=== PATIENT | female | born 1955 | race African-American/Black ===

== ENCOUNTER → 2016-11-20 | Outpatient (CLI) | payer OTHER ==
[2016-07-30 13:37] VITALS: BP 215/83
[~2016-11-20] MED LIST: SULF1TAB24 PO
--- NOTE | 2016-11-20 16:09 | RAD ---
Dictation cut Pain associated with trauma 3 months ago. Recent injury. AP oblique and lateral views of the left foot were obtained. There is moderately extensive vascular calcification. Has planus is noted. There are some degenerative changes involving the midfoot. There is slight soft tissue swelling. An acute bony finding is not apparent. IMPRESSION: No acute bony finding
== END | disposition home or self-care (01) ==
LOC: RAD 14:49
PROVIDERS: ATTEND Internal Medicine
DX: S99.922A Unspecified injury of left foot, initial encounter (principal)
CPT/HCPCS: 73630

== ENCOUNTER 2016-11-24 16:47 | Emergency (ER) | payer OTHER ==
--- NOTE | 2016-11-24 19:09 | RAD ---
PROCEDURE: Left lower extremity venous Doppler ultrasound. HISTORY Left foot pain and swelling, unable to bear weight. Left foot cold. Patient is diabetic. COMPARISON None. TECHNIQUE Real-time grayscale, color flow, and Doppler spectral waveform analysis of the deep veins of the lower extremity/ies performed. FINDINGS All visualized vein segments demonstrate normal compressibility and augmentation and color flow. Color flow seen within calf veins. Waveform in the popliteal artery is monophasic. Peak systolic velocity ranges from 30/4 to 59 cm/sec. Color Doppler demonstrates minimal flow in the peroneal artery proximally. No flow can be demonstrated in the posterior tibial or dorsalis pedis arteries. IMPRESSION 1. No evidence of left lower extremity deep vein thrombosis. 2. Flow in the dorsalis pedis and posterior tibial artery is unable to be demonstrated. Electronically signed by: Francisco Varela MD (Nov 24, 2016 19:08:31)
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
[2016-11-24 20:12] LABS: BASO # 0.1 x10^3/uL (0.0-0.2); BASO % 1 % (0-3); EOS % 0 % (0-3); HEMATOCRIT 39.9 % (36.0-47.0); HEMOGLOBIN 13.2 g/dL (12.0-15.5); LYMPH # 1.5 x10^3/uL (1.0-4.8); LYMPH % 10 % (24-48); MEAN CORPUSCULAR HEMOGLOBIN 28 pg (25-35); MEAN CORPUSCULAR HGB CONC 33 g/dL (31-37); MEAN CORPUSCULAR VOLUME 84 fL (79-100); MONO % 8 % (0-9); NEUT % 82 % (31-73); PLATELET COUNT 215 x10^3/uL (140-400); RED BLOOD COUNT 4.76 x10^6/uL (3.50-5.40); RED CELL DISTRIBUTION WIDTH 15.2 % (11.5-14.5)
[2016-11-24 20:16] LABS: CALCIUM 9.5 mg/dL (8.5-10.1); CREATININE 1.1 mg/dL (0.6-1.0); GFR 61.3
[2016-11-24 20:19] LABS: INR 1.2 (0.8-1.1); PROTHROMBIN TIME PATIENT 14.2 SEC (11.7-14.0)
--- NOTE | 2016-11-24 21:11 | RAD ---
PROCEDURE Left lower extremity arterial duplex ultrasound. HISTORY Swelling and coldness. TECHNIQUE Grayscale, color flow, and spectral waveform analysis was performed. COMPARISON None. FINDINGS There is an elevated velocity in the popliteal artery proximally, peak systolic velocity 499 cm/sec. Beyond this, flow is monophasic with blunted systolic upstroke. No flow was identified within the posterior tibial artery or the dorsalis pedis artery. Only minimal flow is noted in the peroneal artery. Common femoral artery and superficial femoral artery are within normal limits. IMPRESSION High-grade stenosis in the popliteal artery. Electronically signed by: Martin Reveles MD (Nov 24, 2016 21:09:56)
[2016-11-24 21:51] VITALS: BP 156/96
== END 2016-11-24 22:01 | disposition home or self-care (01) ==
LOC: ER 16:47
DX: S90.32XA Contusion of left foot, initial encounter (principal); I73.9 Peripheral vascular disease, unspecified; E11.9 Type 2 diabetes mellitus without complications; E78.00 Pure hypercholesterolemia, unspecified; I10 Essential (primary) hypertension; W23.0XXA Caught, crushed, jammed, or pinched between moving objects, initial encounter; Y93.89 Activity, other specified; Y92.69 Other specified industrial and construction area as the place of occurrence of the external cause; Y99.8 Other external cause status
CPT/HCPCS: 36415; 80048; 85027; 85610; 85730; 93923; 93971; 99285-25

== ENCOUNTER 2016-12-01 08:33 | Outpatient (CLI) | payer OTHER ==
[~2016-12-01] VITALS: Ht 157.5 cm; Wt 102.5 kg
[2016-12-01] VITALS (10 sets, daily range): BP systolic 129–205; BP diastolic 54–140
[2016-12-01 09:14] LABS: BASO # 0.1 x10^3/uL (0.0-0.2); BASO % 1 % (0-3); CALCIUM 9.7 mg/dL (8.5-10.1); CREATININE 1.1 mg/dL (0.6-1.0); EOS % 0 % (0-3); GFR 61.3; HEMOGLOBIN 11.9 g/dL (12.0-15.5); LYMPH # 1.4 x10^3/uL (1.0-4.8); LYMPH % 8 % (24-48); MEAN CORPUSCULAR HEMOGLOBIN 27 pg (25-35); MEAN CORPUSCULAR HGB CONC 31 g/dL (31-37); MEAN CORPUSCULAR VOLUME 85 fL (79-100); MONO % 7 % (0-9); NEUT % 84 % (31-73); PLATELET COUNT 266 x10^3/uL (140-400); POTASSIUM 3.9 mmol/L (3.5-5.1); RED BLOOD COUNT 4.46 x10^6/uL (3.50-5.40); RED CELL DISTRIBUTION WIDTH 14.9 % (11.5-14.5)
[2016-12-01 09:28] LABS: INR 1.2 (0.8-1.1); PROTHROMBIN TIME PATIENT 14.5 SEC (11.7-14.0)
[2016-12-01] MEDS ORDERED: SIMV20TA3 PO (09:28)
[2016-12-01] MEDS ORDERED: LISI10TA2 PO (09:28)
[2016-12-01] MEDS ORDERED: METF500T4 PO (09:28)
[2016-12-01] MEDS ORDERED: INSU100V8 SQ (09:28)
[2016-12-01] MEDS ORDERED: HEPARIN for ARTERIAL LINE 1,500 ML ONE (09:44)
[2016-12-01] MEDS ORDERED: IODIXANOL 320 MG/ML 100 ML VIAL. ONE (09:44)
[2016-12-01] MEDS ORDERED: IODIXANOL 320MG/ML 50ML VIAL. ONE (09:44)
[2016-12-01] MEDS ORDERED: LIDOCAINE 1% / SOD BICARB 8.4% 20 ML VIAL. IJ ONE ×2 (09:44→10:30)
[2016-12-01] MEDS ORDERED: IOHEXOL 300 MG/ML 100ML VIAL. ONE (09:44)
[2016-12-01] MEDS ORDERED: FENTANYL PF 250 MCG/5 ML VIAL. ONE (09:56)
[2016-12-01] MEDS ORDERED: MIDAZOLAM HCL/PF 5 MG/5 ML VIAL. ONE (09:56)
[2016-12-01] MEDS ORDERED: HEPARIN for IV BOLUS 10,000 UNIT/10 ML VIAL. ONE (09:56)
[2016-12-01 09:57] LABS: PLT ESTIMATE ADEQUATE (ADEQUATE)
[2016-12-01] MEDS ORDERED: FENTANYL PF 250 MCG/5 ML VIAL. IV ONE (10:30)
[2016-12-01] MEDS ORDERED: CONTRAST GIVEN MC PRN (10:30)
[2016-12-01] MEDS ORDERED: MIDAZOLAM HCL/PF 5 MG/5 ML VIAL. IV ONE (10:30)
[2016-12-01] MEDS ORDERED: IOHEXOL 300 MG/ML 100ML VIAL. IART ONE (10:30)
[2016-12-01] MEDS ORDERED: IODIXANOL 320 MG/ML 100 ML VIAL. IART ONE (10:30)
[2016-12-01] MEDS ORDERED: HEPARIN for IV BOLUS 10,000 UNIT/10 ML VIAL. IV ONE (11:00)
[2016-12-01] MEDS ORDERED: ASPIRIN CHEWABLE 81 MG TABLET. PO ONE (12:00)
--- NOTE | 2016-12-01 12:02 | PDOC ---
MODERATE SEDATION ASSESSMENT RISKS/ALTERNATIVES Risks/Alternatives Risks and alternatives of this type of sedation and procedure discussed with: RISK/ALTERNATIVES: Patient H & P ON CHART H & P H & P on chart and reviewed for co-morbid conditions and appropriate labs. H&P ON CHART: Yes STATUS PREG STATUS ASSESSED: N/A MEDS/ALLERGIES REVIEWED Meds/Allergies Reviewed Medications and Allergies including time and route of recently administered narcotics and sedatives. MEDS/ALLERGIES REVIEWED: Yes ASA RATING ASA RATING: II AIRWAY ASSESSMENT Airway Assessment Airway patency, oral function limitations, presence of caps, crowns, dentures, partials, and ability to extend neck assessed. AIRWAY ASSESSMENT: Yes MALLAMPATI SCORE MALLAMPATI SCORE: III PRE-SEDATION ASSESSMENT PRE-SEDATION ASSESSMENT: Yes DARIUS STEPHENS MD Dec 01, 2016 12:02
--- NOTE | 2016-12-01 12:08 | PDOC1 ---
History and Physical Date of Procedure Date of Admission 12/01/16 Procedure Procedure Abdominal aortogram with left leg angio +/- intervention Indication Indication 61 YO female with diabetes, HTN, dyslipidemia, PAD, and left foot wounds. Past Medical History Past Medical History See Nursing Pre procedure PMH Past Surgical History Past Surgical History See Nursing Pre procedure PSH Current Medications Current Medications Current Medications Iodixanol (Visipaque 320) 50 ml STK-MED ONCE .ROUTE ; Start 12/01/16 at 09:44; Stop 12/01/16 at 09:46; Status DC Iohexol (Omnipaque 300 Mg/ml) 100 ml STK-MED ONCE .ROUTE ; Start 12/01/16 at 09: 44; Stop 12/01/16 at 09:46; Status DC Lidocaine/Sodium Bicarbonate 20 ml 20 ml STK-MED ONCE IJ ; Start 12/01/16 at 09: 44; Stop 12/01/16 at 09:46; Status DC Heparin Sodium/ Sodium Chloride 1,500 ml @ As Directed STK-MED ONCE .ROUTE ; Start 12/01/16 at 09:44; Stop 12/01/16 at 09:46; Status DC Iodixanol (Visipaque 320) 100 ml STK-MED ONCE .ROUTE ; Start 12/01/16 at 09:44; Stop 12/01/16 at 09:46; Status DC Heparin Sodium (Porcine) 10,000 unit STK-MED ONCE .ROUTE ; Start 12/01/16 at 09: 56; Stop 12/01/16 at 09:57; Status DC Midazolam HCl (Versed) 5 mg STK-MED ONCE .ROUTE ; Start 12/01/16 at 09:56; Stop 12/01/16 at 09:57; Status DC Fentanyl Citrate (Fentanyl 5ml Vial) 250 mcg STK-MED ONCE .ROUTE ; Start at 09:56; Stop 12/01/16 at 09:57; Status DC Heparin Sodium/ Sodium Chloride 1,000 unit 1X ONCE IART Last administered on t 11:39; Start 12/01/16 at 10:30; Stop 12/01/16 at 10:31; Status DC Lidocaine/Sodium Bicarbonate (Buffered Lidocaine 1%) 20 ml 1X ONCE IJ Last administered on 12/01/16t 11:40; Start 12/01/16 at 10:30; Stop 12/01/16 at 10:31 ; Status DC Midazolam HCl (Versed) 5 mg 1X ONCE IV Last administered on 12/01/16 11:40; Start 12/01/16 at 10:30; Stop 12/01/16 at 10:31; Status DC Fentanyl Citrate (Fentanyl 5ml Vial) 250 mcg 1X ONCE IV Last administered on 11:40; Start 12/01/16 at 10:30; Stop 12/01/16 at 10:31; Status DC Iohexol (Omnipaque 300 Mg/ml) 100 ml 1X ONCE IART Last administered on 11:41; Start 12/01/16 at 10:30; Stop 12/01/16 at 10:31; Status DC Iodixanol (Visipaque 320) 150 ml 1X ONCE IART Last administered on 12/01/16 11:41; Start 12/01/16 at 10:30; Stop 12/01/16 at 10:31; Status DC Info (Do NOT chart on this entry -- for MONITORING) 1 each PRN DAILY PRN MC SEE COMMENTS; Start 12/01/16 at 10:30; Stop 12/03/16 at 10:29 Heparin Sodium (Porcine) 7,000 unit 1X ONCE IV Last administered on 12/01/16 11:00; Start 12/01/16 at 11:00; Stop 12/01/16 at 11:01; Status DC Active Scripts Active Bactrim Ds Tablet (Sulfamethoxazole/Trimethoprim) 1 Each Tablet 1 Tab PO BID Reported Lantus (Insulin Glargine,Hum.rec.anlog) 100 Unit/1 Ml Vial 35 Unit SQ Simvastatin 20 Mg Tablet 1 PO QHS Lisinopril 10 Mg Tablet 1 Tab PO DAILY Metformin Hcl 500 Mg Tablet 1 Tab PO BID Allergies Allergies: Coded Allergies: No Known Drug Allergies (Unverified , 12/01/16) Physical Exam Vital Signs Vital Signs Date Time Temp Pulse Resp B/P Pulse Ox O2 Delivery O2 Flow Rate FiO2 12/01/16 11:40 16 99 Room Air 12/01/16 11:32 97 12/01/16 09:10 98.1 173/75 98.1 Lungs: Clear to auscultation Heart: Other (Regular tachycardia) Psych/Mental Status: Mental status NL Other 2+ 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 Nonpalpable left DP/PT pulses. Diagnostic Data/Imaging Images None available Assessment Assessment 61 YO female with CV risk factors. Severe PAD, with nonpalpable left foot/ ankle pulses and with left foot wounds. Problems: Plan Plan Diagnostic arteriogram +/- intervention DARIUS STEPHENS MD Dec 01, 2016 12:07
--- NOTE | 2016-12-01 12:14 | PDOC ---
Exam Coach Operator Coach Operator Nai Certified Nurse Certified Nurse Demetri Stapleton Pre-Procedure Diagnosis Pre-Procedure Diagnosis 61 YO diabetic, hypertensive female with severe PAD and with left foot wounds. Post-Procedure Diagnosis Post-Procedure Diagnosis Same. High grade left distal fem-pop disease. Severe left tibial trifurcation chronic occlusive disease, with no named vessel r/o to foot/ankle. Procedure Performed Procedure Performed Diagnostic abdominal aortogram with selective left lower extremity angio. DCB TINT LAYER left left SFA-Pop segment Type of Anesthesia Type of Anesthesia Local + Mod sedation Estimated Blood Loss EBL: 50 cc Condition of Patient Condition of Patient Stable. No apparent complication. Mynx at rt groin puncture site. Disposition Disposition Home from [facility] post recovery, if no problems. F/u with Vascular Surgery. Hold metformin x 48 hrs. Plavix 75 mg daily x 2 months ASA 81 mg daily x 6 months Full report to follow. DARIUS STEPHENS MD Dec 01, 2016 12:14
[2016-12-01] MEDS ORDERED: CLOPIDOGREL BISULFATE 75 MG TABLET PO ONE (12:15)
[2016-12-01] MEDS ORDERED: ACETAMINOPHEN 325 MG TABLET. PO ONE ×2 (13:49→14:00)
--- NOTE | 2016-12-02 13:43 | RAD ---
Abdominal aortogram with selective left lower extremity arteriogram Left popliteal DCB ELECTRICAL SOFTWARE ENGINEER Indication: 61-year-old female with diabetes, hypertension, dyslipidemia, PAD with chronic limb ischemia, and left foot wounds. Diagnostic arteriogram, with possible intervention, has been requested by vascular surgery. Fluoroscopy time: 18.2 minutes Kerma-area Product: 153 Gycm2 Contrast material: 45 cc Omnipaque 300. 87 cc Visipaque 320. Anesthesia: 94 minutes moderate sedation was provided utilizing a total of 3 mg Versed and 150 mcg fentanyl, IV. The patient was appropriately monitored by a qualified independent observer throughout the time of moderate sedation. Consent: The procedure was explained in its entirety to the patient and/or the patient's designated claim service representative by a member of the treatment team. This included a discussion of risks and benefits and commonly accepted alternatives to the procedure, as well as expected consequences of no treatment at all. Discussion of risks included, but was not limited to, those that are most frequent and those that are rare, but possibly severe or life-threatening, as well as the possibility of unforeseen complications. Sterility: All elements of maximal sterile barrier technique were utilized, including cap, mask, sterile gown, sterile gloves, large sterile sheet, appropriate hand hygiene, and 2% chlorhexidine for cutaneous antisepsis. Procedure: Informed consent was obtained from the patient. She was placed supine on the angiography table. Preliminary ultrasound examination of right groin revealed wide patency of right common femoral artery, which was documented with a single hard copy ultrasound image. Right groin was then prepped and draped in the usual sterile fashion, utilizing all elements of maximal sterile barrier technique, as described above. Moderate sedation was provided with IV Versed and fentanyl. Using aseptic technique, local anesthesia, direct ultrasound guidance, and the micropuncture system, a 5 Nigerian right common femoral artery sheath was successfully introduced. Abdominal aortogram: A 5 Nigerian Omni Flush catheter was advanced through the right groin sheath and was positioned within suprarenal abdominal aorta. Omnipaque 300 was injected and abdominal aortogram DSA images were obtained. Findings: Infrarenal abdominal aorta is smooth in contour and normal in caliber. There is no abdominal aortic aneurysm or significant stricture. Single main renal arteries are widely patent, bilaterally. SMA and RAFAEL are opacified. Oblique pelvis injection: The Omni Flush catheter was withdrawn into terminal abdominal aorta, just above bifurcation. Omnipaque 300 was again injected and DSA images were obtained over pelvis in the ESTRADA projection. Findings: Common iliac and external iliac arteries are widely patent. Both hypogastric arteries appear widely patent, as well. No flow-limiting inflow stenosis is demonstrated, bilaterally. Left lower extremity arteriogram: The 5 Nigerian Omni Flush catheter was advanced across aortic bifurcation over a Glidewire and was positioned within contralateral left common femoral artery. Visipaque was injected and DSA images were obtained over left groin and proximal thigh in the FAROESE projection. The Omni Flush catheter was then exchanged over the Glidewire for a 0.035 inch quick cross catheter, which was advanced into mid left SFA. Dilute Visipaque was hand injected and DSA images were obtained from mid left thigh through left foot/ankle. Findings: Left common femoral artery shows minimal plaquing, without significant stenosis. There is mild narrowing at origin of left deep femoral artery, which is otherwise widely patent. Scattered areas of minor narrowing are seen within left SFA, without flow-limiting lesion. Left popliteal artery, from abductor canal through knee joint, show significant after cirrhotic involvement, including localized areas of moderate, high-grade, and critical stenosis. Below knee left popliteal artery is small in caliber, without flow-limiting lesion. Left tibial trifurcation is patent, however, no named tibial trifurcation vessel is opacified below mid calf. Markedly delayed images revealed innumerable tiny collateral vessels at mid-distal calf, with very poor perfusion to left ankle/foot. Left popliteal artery ELECTRICAL SOFTWARE ENGINEER: Given this patient's symptomatic, limb threatening chronic limb ischemia, the decision was made to proceed with balloon dilatation of left popliteal artery, in an attempt to improve indirect, collateral perfusion to left foot/ankle. The quick cross catheter, previously positioned within mid left SFA, was removed over a [employer] advantage guidewire. The 5 Nigerian right common femoral artery sheath was exchanged over the advantage wire for a 6 Nigerian 65 cm long destination sheath, which was advanced across aortic bifurcation into mid left SFA. Following IV bolus ministration of 7000 units heparin, a 0.018 inch quick cross catheter was inserted through the destination sheath, and was carefully advanced over a [employer] GT microguidewire through the severely diseased proximal-mid left popliteal artery into distal left popliteal artery. Satisfactory intraluminal position of the quick cross catheter within distal left popliteal artery was confirmed with a contrast injection. Subsequently, utilizing fluoroscopic guidance and road mapping technique, the quick cross catheter was exchanged over a grand slam microguidewire for a 4 mm x 120 mm Cordis chocolate ELECTRICAL SOFTWARE ENGINEER balloon which was utilized to perform prolonged (4 minutes) medium pressure (10 anam) balloon dilatation of proximal-mid left popliteal artery. The chocolate ELECTRICAL SOFTWARE ENGINEER balloon was then removed. Paclitaxel-coated ELECTRICAL SOFTWARE ENGINEER of proximal-mid left popliteal artery was then performed utilizing a 4 mm x 120 mm Medtronic Admiral DCB, followed by a 4 mm x 40 mm Medtronic Admiral DCB. The 2 paclitaxel-coated ELECTRICAL SOFTWARE ENGINEER balloons were inflated to a peak pressure of 4 anam for 3 minutes. Visipaque was then injected through the destination sheath and completion DSA images were obtained. Those images revealed markedly improved caliber of the proximal-mid left popliteal artery, without flow-limiting dissection, without thrombosis, and without distal embolization to tibial trifurcation. Patient tolerated the procedure well without apparent complication. Hemostasis was achieved at the right groin puncture site utilizing the Mynx closure system. Impression: 1. No abdominal aortic aneurysm or significant aortoiliac inflow stenosis, bilaterally. 2. Severe atherosclerotic involvement involving proximal-mid left popliteal artery, for which successful, uneventful drug coated balloon angioplasty was performed, as described. 3. Tibial trifurcation is widely patent, however, no named tibial vessel was opacified from mid calf through foot/ankle.
== END 2016-12-01 16:30 | disposition home or self-care (01) ==
LOC: CCL 08:33
DX: I70.202 Unspecified atherosclerosis of native arteries of extremities, left leg (principal); I99.8 Other disorder of circulatory system; E78.00 Pure hypercholesterolemia, unspecified; E11.9 Type 2 diabetes mellitus without complications; I10 Essential (primary) hypertension; E78.5 Hyperlipidemia, unspecified; I73.9 Peripheral vascular disease, unspecified
CPT/HCPCS: 36415; 37224; 75625; 75710; 75774; 76937; 80048; 85007; 85027; 85610; C1713; C1758; C1760; C1769; C1892; C1894; C2623; G0269; J2250; J3010; Q9967

== ENCOUNTER → 2017-12-27 | Outpatient (CLI) | payer OTHER ==
[2017-12-27 11:34] LABS: ADD MAN DIFF? NO
[2017-12-27 11:40] LABS: BASO # 0.1 x10^3/uL (0.0-0.2); BASO % 1 % (0-3); EOS # 0.1 x10^3/uL (0.0-0.7); EOS % 1 % (0-3); HEMATOCRIT 34.2 % (36.0-47.0); HEMOGLOBIN 10.8 g/dL (12.0-15.5); LYMPH # 1.5 x10^3/uL (1.0-4.8); LYMPH % 16 % (24-48); MEAN CORPUSCULAR HEMOGLOBIN 24 pg (25-35); MEAN CORPUSCULAR HGB CONC 32 g/dL (31-37); MEAN CORPUSCULAR VOLUME 75 fL (79-100); MONO # 0.7 x10^3/uL (0.0-1.1); MONO % 7 % (0-9); NEUT # 7.4 x10^3uL (1.8-7.7); NEUT % 75 % (31-73); PLATELET COUNT 249 x10^3/uL (140-400); RED BLOOD COUNT 4.59 x10^6/uL (3.50-5.40); RED CELL DISTRIBUTION WIDTH 16.4 % (11.5-14.5); WHITE BLOOD COUNT 9.8 x10^3/uL (4.0-11.0)
[2017-12-27 12:07] LABS: ALBUMIN 3.2 g/dL (3.4-5.0); ALBUMIN/GLOBULIN RATIO 0.7 (1.0-1.7); ALK PHOS 93 U/L (46-116); ALT (SGPT) 15 U/L (14-59); ANION GAP 8 (6-14); AST (SGOT) 11 U/L (15-37); BLOOD UREA NITROGEN 20 mg/dL (7-20); BUN/CREATININE RATIO 20 (6-20); CALCIUM 9.6 mg/dL (8.5-10.1); CARBON DIOXIDE 29 mmol/L (21-32); CHLORIDE 103 mmol/L (98-107); CHOLESTEROL 132 mg/dL (0-200); GFR 68.2; GLUCOSE 221 mg/dL (70-99); HDLC 52 mg/dL (40-60); LDLC 69 mg/dL (0-100); NON-HDL CHOLESTEROL 80 mg/dL (0-129); POTASSIUM 4.1 mmol/L (3.5-5.1); SODIUM 140 mmol/L (136-145); TOTAL BILIRUBIN 0.4 mg/dL (0.2-1.0); TRIGLYCERIDES 57 mg/dL (0-150); VLDLC 11 mg/dL (0-40)
[2017-12-27 12:08] LABS: CHOLESTEROL/HDL RATIO 2.5
[2017-12-27 12:17] LABS: THYROID STIM HORMONE (TSH) 1.524 uIU/mL (0.358-3.74)
[2017-12-28 01:16] LABS: HEMOGLOBIN A1C 9.8 % (4.8-5.6)
[2017-12-28 12:19] LABS: CREAT RD UR 123.6 mg/dL (Not Estab.); MICRO CREAT RATIO 221.1 mg/g creat (0.0-30.0); MICROALB RD UR 273.3 ug/mL (Not Estab.)
== END | disposition home or self-care (01) ==
LOC: RAD 10:26
DX: M62.838 Other muscle spasm (principal); E11.59 Type 2 diabetes mellitus with other circulatory complications; I10 Essential (primary) hypertension; E78.00 Pure hypercholesterolemia, unspecified; R91.8 Other nonspecific abnormal finding of lung field
CPT/HCPCS: 36415; 71046; 80053; 80061; 82043; 82570; 83036; 84443; 85025

== ENCOUNTER → 2018-09-17 | Outpatient (CLI) | payer OTHER ==
[2016-12-01 15:30] VITALS: BP 137/60
[~2018-09-17] MED LIST changes: +ASPI-630 PO; +CLOP75TA PO; +INSU100C SQ; +INSU100V8 SQ; +LISI10TA2 PO; +METF10007 PO; +METF500T16 PO; +MULT1TAB52 PO; +SIMV20TA3 PO; +SIMV40TA3 PO
== END | disposition home or self-care (01) ==
LOC: PMGWOUND 10:04
PROVIDERS: ATTEND Emergency Medicine Undersea and Hyperbaric Medicine
DX: E11.621 Type 2 diabetes mellitus with foot ulcer (principal); L97.411 Non-pressure chronic ulcer of right heel and midfoot limited to breakdown of skin; L97.512 Non-pressure chronic ulcer of other part of right foot with fat layer exposed; E11.622 Type 2 diabetes mellitus with other skin ulcer; L97.211 Non-pressure chronic ulcer of right calf limited to breakdown of skin; L97.821 Non-pressure chronic ulcer of other part of left lower leg limited to breakdown of skin; I10 Essential (primary) hypertension; I87.2 Venous insufficiency (chronic) (peripheral); Z79.4 Long term (current) use of insulin; E78.00 Pure hypercholesterolemia, unspecified
CPT/HCPCS: 99205; G0463

== ENCOUNTER → 2018-09-18 | Outpatient (CLI) | payer OTHER ==
[2016-12-01 15:30] VITALS: BP 137/60
[~2018-09-18] MED LIST changes: -ASPI-630 PO; -CLOP75TA PO; -INSU100C SQ; -METF10007 PO; -MULT1TAB52 PO; -SIMV40TA3 PO
--- NOTE | 2018-09-18 13:01 | RAD ---
Ankle-brachial indices. 09/18/2018 Right lower extremity arterial duplex ultrasound 09/18/2018 INDICATION: Nonhealing wound, right ankle. COMPARISON STUDY: Pelvic angiography and left lower extremity angiography December 01, 2016 Discussion: Blood pressure measurements were obtained at the arms right ankle. Right brachial pressure: 145 mmHg Left brachial pressure: 149 mmHg Right ankle pressure: 120 mmHg Right CHAPARRITA 0.8 Ultrasound evaluation of right lower extremity major arteries was performed including color Doppler imaging and spectral analysis. The right common femoral artery demonstrates monophasic flow. Hemodynamically significant aortoiliac stenosis may be present. No significant aortoiliac stenosis is identified November 2016. Profunda artery appears grossly patent. Within the proximal superficial femoral artery there is a focal elevation velocities measuring up to 417 cm/s.. Findings suggest a significant stenosis, which may be under estimated in the presence of possible inflow disease. Some spectral aliasing is seen on color Doppler imaging. High-grade visual stenosis is not identified on color Doppler imaging however. [id number] vessels are somewhat poorly evaluated. Posterior tibial artery and anterior tibial artery demonstrate monophasic flow. The peroneal artery is not visualized. Dorsalis pedis arteries grossly patent. Diffuse atherosclerotic vascular disease is noted. IMPRESSION: 1. Reduced ankle-brachial index on the right. Suggesting at least moderate atherosclerotic vascular narrowing. 2. Possible aortoiliac stenosis is evidenced by monophasic flow in the common femoral arteries 3. At least moderate stenosis appears be present in the proximal left superficial femoral artery 4. Possible occlusion of the peroneal artery. 5. CT or conventional angiography is recommended for further characterization Electronically signed by: Jarad Evans MD (09/18/2018 12:57 PM) [id number]
== END | disposition home or self-care (01) ==
LOC: US 09:58
PROVIDERS: ATTEND Emergency Medicine Undersea and Hyperbaric Medicine
DX: E11.621 Type 2 diabetes mellitus with foot ulcer (principal); L97.319 Non-pressure chronic ulcer of right ankle with unspecified severity
CPT/HCPCS: 93922; 93926

== ENCOUNTER → 2018-09-24 | Outpatient (CLI) | payer OTHER ==
[2016-12-01 15:30] VITALS: BP 137/60
== END | disposition home or self-care (01) ==
LOC: PMGWOUND 10:35
PROVIDERS: ATTEND Emergency Medicine Undersea and Hyperbaric Medicine
DX: E11.621 Type 2 diabetes mellitus with foot ulcer (principal); L97.512 Non-pressure chronic ulcer of other part of right foot with fat layer exposed; E11.622 Type 2 diabetes mellitus with other skin ulcer; L97.211 Non-pressure chronic ulcer of right calf limited to breakdown of skin; L84 Corns and callosities; I10 Essential (primary) hypertension; I87.2 Venous insufficiency (chronic) (peripheral); E78.00 Pure hypercholesterolemia, unspecified; Z79.4 Long term (current) use of insulin; Z89.512 Acquired absence of left leg below knee
CPT/HCPCS: 99215

== ENCOUNTER → 2018-10-01 | Outpatient (CLI) | payer OTHER ==
[2016-12-01 15:30] VITALS: BP 137/60
== END | disposition home or self-care (01) ==
LOC: PMGWOUND 10:32
PROVIDERS: ATTEND Nurse Practitioner Family
DX: E11.621 Type 2 diabetes mellitus with foot ulcer (principal); L97.512 Non-pressure chronic ulcer of other part of right foot with fat layer exposed; L97.211 Non-pressure chronic ulcer of right calf limited to breakdown of skin; L84 Corns and callosities; I10 Essential (primary) hypertension; I87.2 Venous insufficiency (chronic) (peripheral); E78.00 Pure hypercholesterolemia, unspecified; Z79.4 Long term (current) use of insulin; Z89.422 Acquired absence of other left toe(s)
CPT/HCPCS: 93923; 97597

== ENCOUNTER 2018-10-03 07:15 | Outpatient (CLI) | payer OTHER ==
[~2018-10-03] VITALS: Ht 157.5 cm; Wt 104.8 kg
[2018-10-03] VITALS (12 sets, daily range): BP systolic 92–179; BP diastolic 60–82
[2018-10-03] MEDS ORDERED: SIMV40TA3 PO (07:32)
[2018-10-03] MEDS ORDERED: ASPI-630 PO (07:32)
[2018-10-03] MEDS ORDERED: CLOP75TA PO (07:32)
[2018-10-03] MEDS ORDERED: MULT1TAB52 PO (07:32)
[2018-10-03] MEDS ORDERED: METF10007 PO (07:32)
[2018-10-03] MEDS ORDERED: INSU100C SQ (07:32)
[2018-10-03] MEDS ORDERED: MIDAZOLAM HCL/PF 2 MG/2 ML VIAL. ONE (07:34)
[2018-10-03] MEDS ORDERED: fentaNYL PF VIAL 100 MCG/2 ML VIAL ONE (07:35)
[2018-10-03] MEDS ORDERED: HEPARIN for IV BOLUS 10,000 UNIT/10 ML VIAL. ONE (07:35)
[2018-10-03] MEDS ORDERED: IODIXANOL 320 MG/ML 100 ML VIAL. ONE (07:46)
[2018-10-03] MEDS ORDERED: LIDOCAINE WITH 8.4% SOD BICARB 3 ML DISP.SYRIN. ONE (07:47)
[2018-10-03 08:05] LABS: PROTHROMBIN TIME PATIENT 12.5 SEC (11.7-14.0)
[2018-10-03] MEDS ORDERED: fentaNYL PF VIAL 100 MCG/2 ML VIAL IV ONE (10:45)
[2018-10-03] MEDS ORDERED: LIDOCAINE WITH 8.4% SOD BICARB 3 ML DISP.SYRIN. IJ ONE (10:45)
[2018-10-03] MEDS ORDERED: IODIXANOL 320 MG/ML 100 ML VIAL. IART ONE (10:45)
[2018-10-03] MEDS ORDERED: MIDAZOLAM HCL/PF 2 MG/2 ML VIAL. IV ONE (10:45)
[2018-10-03] MEDS ORDERED: HEPARIN for IV BOLUS 10,000 UNIT/10 ML VIAL. IV ONE (10:45)
--- NOTE | 2018-10-03 10:58 | PDOC ---
BRIEF OPERATIVE NOTE Pre-Op Diagnosis CLI Post-Op Diagnosis same Procedure Performed Aortogram and RLE arteriogram with DCB Angioplasty of the SFA and Popliteal arteries Surgeon Love Anesthesia Type: Conscious Sedation Findings Severe focal right popliteal artery stenosis and tandem moderate mid SFA stenoses all improved s/p angioplasty with DCB. AT and Peroneal artery patent to ankle. PT occluded throughout and attempts to recanalize were unsuccessful. Minimal perfusion below the ankle from any distribution consistent with extensive small vessel atherosclerosis. Complications mid calf wire perforation while trying to recannalize the PT - doubtful clinical significance. VISHAL MATAMOROS MD Oct 03, 2018 10:58
--- NOTE | 2018-10-03 10:58 | PDOC ---
MODERATE SEDATION ASSESSMENT RISKS/ALTERNATIVES Risks/Alternatives Risks and alternatives of this type of sedation and procedure discussed with: RISK/ALTERNATIVES: Patient H & P ON CHART H & P H & P on chart and reviewed for co-morbid conditions and appropriate labs. H&P ON CHART: Yes STATUS PREG STATUS ASSESSED: Yes MEDS/ALLERGIES REVIEWED Meds/Allergies Reviewed Medications and Allergies including time and route of recently administered narcotics and sedatives. MEDS/ALLERGIES REVIEWED: Yes ASA RATING ASA RATING: II AIRWAY ASSESSMENT Airway Assessment Airway patency, oral function limitations, presence of caps, crowns, dentures, partials, and ability to extend neck assessed. AIRWAY ASSESSMENT: Yes MALLAMPATI SCORE MALLAMPATI SCORE: II PRE-SEDATION ASSESSMENT PRE-SEDATION ASSESSMENT: Yes VISHAL MATAMOROS MD Oct 03, 2018 10:58
[2018-10-03] MEDS ORDERED: CLOPIDOGREL BISULFATE 75 MG TABLET PO ONE (11:15)
[2018-10-03] MEDS ORDERED: CLOPIDOGREL BISULFATE 75 MG TABLET ONE (13:23)
--- NOTE | 2018-10-03 13:34 | RAD ---
Procedure: Aortogram, right lower extremity diagnostic arteriograms, angioplasty of the popliteal artery, and angioplasty of the superficial femoral artery. Clinical Indication: 63-year-old female critical limb ischemia, diabetes, nonhealing wound of the medial distal calf just above the ankle Sedation: Conscious sedation was administered with a total intraprocedural [id number] time of 87 minutes. The patient was monitored by a qualified independent observer throughout the time of sedation. Please refer to the medical record for exact doses of medications utilized to achieve moderate sedation. Antibiotics: None Exposure: Kerma-Area Product: 321 Gycm2 Contrast: 93 cc of Isovue 300 contrast media Sterility: All elements of maximal sterile barrier technique including the use of a cap, mask, sterile gown, sterile gloves, large sterile sheet, appropriate hand hygiene, and 2% chlorhexidine for cutaneous antisepsis (or acceptable alternative antiseptic per current guidelines) were followed for this procedure. If ultrasound guidance was utilized, sterile ultrasound techniques were followed including use of a sterile probe cover. Consent: The procedure was explained in its entirety to the patient or the patients designated member service representative by a member of the treatment team, including a discussion of the risks, benefits and commonly accepted alternatives to the procedure, as well as the expected consequences of no therapy whatsoever. Discussion of the risks included, but was not limited to, those that are most frequent and those that are rare but possibly severe or life-threatening, as well as the possibility of unforeseen complications. Technique and Findings: Following informed consent, the patient was prepped and draped in usual sterile fashion. Ultrasound interrogation of the left groin revealed patency of the left common femoral artery. A Hardcopy ultrasound image was recorded. As a 21-gauge micropuncture needle was used to gain access to this vessel. The needle was exchanged over wire for a 5 [place] sheath. A flush catheter was advanced into the abdominal aorta and contrast aortography was performed. The aorta, bilateral renal arteries, and visualized mesenteric arteries are normal. The catheter was then withdrawn to just above the aortic bifurcation and contrast angiography of the pelvis was performed demonstrating wide patency of the iliac and common femoral arteries bilaterally. The catheter was used in conjunction with a Glidewire to cross to the contralateral right common femoral artery and contrast angiography of the right lower extremity was performed. There is a high-grade short segment stenosis of the mid popliteal artery just above the knee joint. There is also a series of tandem stenoses within the proximal to mid superficial femoral artery, resulting in approximately 50% stenosis. The anterior tibial artery is widely patent at its origin, but abruptly occludes just above the ankle. The tibioperoneal trunk is patent, and the peroneal artery is patent but occludes at the mid calf. The posterior tibial artery is occluded at its origin. Several poorly developed collateral vessels are seen involving the distal calf, and there is hyperemia at the area of the wound along the medial distal calf, though no vestige of the posterior tibial artery at the ankle or foot is depicted. There is reconstitution of the dorsalis pedis artery via several short segment collaterals from the distal anterior tibial and peroneal arteries. The patient was given 5000 usual heparin. A microcatheter was then used in conjunction with upright wires to probe for the posterior tibial artery, but despite numerous maneuvers, access into the posterior tibial artery could not be achieved. At one point a small wire perforation did occur, but this was felt to be of doubtful clinical significance. The tibial artery was then angioplastied using a 4 mm x 80 mm drug coated balloon inflated to full profile for 3 minutes. The balloon was removed and repeat angiography demonstrated excellent angiographic appearance with no residual stenosis or dissection. The SFA was then angioplastied using a 5 mm x 120 mm and drug coated balloon also inflated to full profile for 3 minutes. This balloon was removed and repeat angiography once again demonstrated excellent angiographic appearance with no significant residual stenosis or dissection. Balloons and wires were removed and contrast injected via the left groin was performed to assess for suitability of a closure device. The sheath was then exchanged for a minx closure device which was successfully utilized to obtain hemostasis. Complications: Wire perforation of the proximal posterior tibial artery, which could not be successfully recanalized. This is of doubtful clinical significance. Impression: 1. Moderate multifocal stenoses of the proximal one mid superficial femoral artery improved following DCB angioplasty. 2. Severe stenosis of the mid popliteal artery also improved following DCB angioplasty. 3. Complete occlusion of the posterior tibial artery throughout its entire course of the calf and foot, with no vestigial perfusion identified. 4. Patent anterior tibial and peroneal arteries proximally. The anterior tibial artery occludes just above the ankle, for roughly 4 cm, with reperfusion of the dorsalis pedis artery by several short collaterals. The peroneal artery occludes at the mid calf, with several small collateral vessels also noted. These collaterals provide perfusion to the area of the patient's presenting wound.
--- NOTE | 2018-10-03 14:14 | NUR ---
Discharge Note: JASKARAN HOOKS Discharge instructions and discharge home medications reviewed with Patient and a copy given. All questions have been answered and understanding verbalized. The following instructions and handouts were given: education was given to patient regarding arteriogram and moderate sedation. Pt was also instructed to continue home medications as directed. Pt verbalized understanding. Discontinued lines and drains: peripheral iv was discontinued with no complications. Catheter tip was intact. Patient discharged to home with self care via [facility]echair. Pt was accompanied by family member.
== END 2018-10-03 14:30 | disposition home or self-care (01) ==
LOC: INTRAD 07:15
PROVIDERS: ATTEND Preventive Medicine Undersea and Hyperbaric Medicine
DX: I70.211 Atherosclerosis of native arteries of extremities with intermittent claudication, right leg (principal); I99.8 Other disorder of circulatory system; E11.621 Type 2 diabetes mellitus with foot ulcer; L97.209 Non-pressure chronic ulcer of unspecified calf with unspecified severity; Z79.82 Long term (current) use of aspirin; Z79.84 Long term (current) use of oral hypoglycemic drugs; Z79.4 Long term (current) use of insulin; Z79.899 Other long term (current) drug therapy
CPT/HCPCS: 36415; 37224; 75625; 75710; 76937; 85610; C1713; C1760; C1769; C1892; C1894; C2623; G0269; J1644; J2250; J3010; Q9962; 99152; 99153

== ENCOUNTER → 2018-10-08 | Outpatient (CLI) | payer OTHER ==
[2018-10-03 13:45] VITALS: BP 140/67
[~2018-10-08] MED LIST changes: +ASPI-630 PO; +CLOP75TA PO; +INSU100C SQ; +METF10007 PO; +MULT1TAB52 PO; +SIMV40TA3 PO
== END | disposition home or self-care (01) ==
LOC: PMGWOUND 09:31
PROVIDERS: ATTEND Emergency Medicine Undersea and Hyperbaric Medicine
DX: E11.621 Type 2 diabetes mellitus with foot ulcer (principal); L97.512 Non-pressure chronic ulcer of other part of right foot with fat layer exposed; E11.622 Type 2 diabetes mellitus with other skin ulcer; L97.211 Non-pressure chronic ulcer of right calf limited to breakdown of skin; L84 Corns and callosities; I10 Essential (primary) hypertension; I87.2 Venous insufficiency (chronic) (peripheral); E78.00 Pure hypercholesterolemia, unspecified; I25.10 Atherosclerotic heart disease of native coronary artery without angina pectoris; Z79.4 Long term (current) use of insulin
CPT/HCPCS: 99214; G0463

== ENCOUNTER → 2018-10-15 | Outpatient (CLI) | payer OTHER ==
[2018-10-03 13:45] VITALS: BP 140/67
== END | disposition home or self-care (01) ==
LOC: PMGWOUND 10:25
PROVIDERS: ATTEND Emergency Medicine Undersea and Hyperbaric Medicine
DX: E11.621 Type 2 diabetes mellitus with foot ulcer (principal); L97.512 Non-pressure chronic ulcer of other part of right foot with fat layer exposed; E11.622 Type 2 diabetes mellitus with other skin ulcer; L97.211 Non-pressure chronic ulcer of right calf limited to breakdown of skin; L84 Corns and callosities; I10 Essential (primary) hypertension; E78.00 Pure hypercholesterolemia, unspecified; I87.2 Venous insufficiency (chronic) (peripheral); I25.10 Atherosclerotic heart disease of native coronary artery without angina pectoris; Z79.4 Long term (current) use of insulin; Z79.82 Long term (current) use of aspirin; Z79.84 Long term (current) use of oral hypoglycemic drugs; Z89.512 Acquired absence of left leg below knee; Z79.899 Other long term (current) drug therapy
CPT/HCPCS: 99214; G0463

== ENCOUNTER → 2018-11-21 | Outpatient (CLI) | payer OTHER ==
[2018-10-03 13:45] VITALS: BP 140/67
== END | disposition home or self-care (01) ==
LOC: PMGWOUND 09:19
PROVIDERS: ATTEND Emergency Medicine Undersea and Hyperbaric Medicine
DX: E11.621 Type 2 diabetes mellitus with foot ulcer (principal); I70.234 Atherosclerosis of native arteries of right leg with ulceration of heel and midfoot; L97.412 Non-pressure chronic ulcer of right heel and midfoot with fat layer exposed; L84 Corns and callosities; I25.2 Old myocardial infarction; I10 Essential (primary) hypertension; E78.00 Pure hypercholesterolemia, unspecified; I87.2 Venous insufficiency (chronic) (peripheral); I25.10 Atherosclerotic heart disease of native coronary artery without angina pectoris; Z89.512 Acquired absence of left leg below knee; Z79.82 Long term (current) use of aspirin; Z79.4 Long term (current) use of insulin; Z79.899 Other long term (current) drug therapy; Z89.422 Acquired absence of other left toe(s); Z79.84 Long term (current) use of oral hypoglycemic drugs
CPT/HCPCS: 93923; 97597

== ENCOUNTER → 2018-11-21 | Outpatient (CLI) | payer OTHER ==
[2018-10-03 13:45] VITALS: BP 140/67
--- NOTE | 2018-11-21 16:56 | RAD ---
Indication: Nonhealing right leg and foot ulcer TECHNIQUE: Grayscale, color Doppler and spectral waveform images of the right lower extremity arteries COMPARISON: None FINDINGS: Monophasic waveforms seen in the ENV[employer] LEADER with velocity of 160 cm/s. Biphasic waveforms seen in the profunda femoris with velocity of 166 cm/s. Monophasic waveforms in the proximal SFA with velocity of 199 cm/s. Monophasic waveform in the mid SFA with velocity of 199 cm/s. Monophasic waveforms in the distal SFA with velocity of 88 cm/s. Monophasic waveforms in the popliteal artery with velocity of 154 cm/s. Monophasic waveform in the proximal peroneal artery with velocity of 197 cm/s. Monophasic waveforms in the proximal HEEL SHAVER with velocity of 61 cm/s. Monophasic waveform in the anterior tibial artery with velocity of 22 cm/s. Monophasic waveforms in the dorsalis pedis artery with velocity of 72 cm/s. No flow is seen in the distal HEEL SHAVER. IMPRESSION: Diffuse moderate atherosclerotic disease of the right lower extremity with no flow seen in the distal HEEL SHAVER likely occluded. No focally increased velocity to suggest focal high-grade stenosis. Electronically signed by: Allen Luis DO (11/21/2018 4:53 PM) [facility]
== END | disposition home or self-care (01) ==
LOC: US 15:03
PROVIDERS: ATTEND Emergency Medicine Undersea and Hyperbaric Medicine
DX: E11.622 Type 2 diabetes mellitus with other skin ulcer (principal); I70.201 Unspecified atherosclerosis of native arteries of extremities, right leg; L97.811 Non-pressure chronic ulcer of other part of right lower leg limited to breakdown of skin; E11.621 Type 2 diabetes mellitus with foot ulcer; L97.411 Non-pressure chronic ulcer of right heel and midfoot limited to breakdown of skin; I87.2 Venous insufficiency (chronic) (peripheral); L84 Corns and callosities; I25.2 Old myocardial infarction; E78.00 Pure hypercholesterolemia, unspecified; I10 Essential (primary) hypertension; I25.10 Atherosclerotic heart disease of native coronary artery without angina pectoris; Z89.512 Acquired absence of left leg below knee; Z89.422 Acquired absence of other left toe(s); Z79.82 Long term (current) use of aspirin; Z79.899 Other long term (current) drug therapy; Z79.4 Long term (current) use of insulin; Z79.84 Long term (current) use of oral hypoglycemic drugs
CPT/HCPCS: 93923; 93926; 97597

== ENCOUNTER → 2018-11-28 | Outpatient (CLI) | payer OTHER ==
[2018-10-03 13:45] VITALS: BP 140/67
== END | disposition home or self-care (01) ==
LOC: PMGWOUND 09:24
PROVIDERS: ATTEND Emergency Medicine Undersea and Hyperbaric Medicine
DX: E11.621 Type 2 diabetes mellitus with foot ulcer (principal); L97.411 Non-pressure chronic ulcer of right heel and midfoot limited to breakdown of skin; I70.201 Unspecified atherosclerosis of native arteries of extremities, right leg; L97.811 Non-pressure chronic ulcer of other part of right lower leg limited to breakdown of skin; I87.2 Venous insufficiency (chronic) (peripheral); L84 Corns and callosities; I10 Essential (primary) hypertension; I25.2 Old myocardial infarction; E78.00 Pure hypercholesterolemia, unspecified; I25.10 Atherosclerotic heart disease of native coronary artery without angina pectoris; Z79.899 Other long term (current) drug therapy; Z89.511 Acquired absence of right leg below knee; Z89.422 Acquired absence of other left toe(s); Z79.4 Long term (current) use of insulin; Z79.82 Long term (current) use of aspirin; Z79.84 Long term (current) use of oral hypoglycemic drugs
CPT/HCPCS: 99215; G0463

== ENCOUNTER 2019-06-25 06:59 | Outpatient (CLI) | payer OTHER ==
[2019-06-25] VITALS (11 sets, daily range): BP systolic 82–175; BP diastolic 45–68
[~2019-06-25] VITALS: Ht 157.5 cm; Wt 102.5 kg
[2019-06-25] MEDS ORDERED: LIDOCAINE 1% Multi-Dose 20 ML VIAL. ONE ×2 (07:31→07:40)
[2019-06-25] MEDS ORDERED: IODIXANOL 320 MG/ML 100 ML VIAL. ONE (07:32)
[2019-06-25] MEDS ORDERED: ACET325T9 PO (07:44)
[2019-06-25] MEDS ORDERED: DOCU50CA9 PO (07:44)
[2019-06-25] MEDS ORDERED: INSU100C4 SQ (07:44)
[2019-06-25] MEDS ORDERED: NAPR220C4 PO (07:44)
[2019-06-25 07:51] LABS: CALCIUM 9.3 mg/dL (8.5-10.1); CREATININE 1.2 mg/dL (0.6-1.0); GFR 55.1
[2019-06-25 08:16] LABS: HEMATOCRIT 38.4 % (36.0-47.0); RED BLOOD COUNT 4.89 x10^6/uL (3.50-5.40); RED CELL DISTRIBUTION WIDTH 17.6 % (11.5-14.5); WHITE BLOOD COUNT 8.4 x10^3/uL (4.0-11.0)
[2019-06-25] MEDS ORDERED: fentaNYL PF VIAL 100 MCG/2 ML VIAL ONE ×2 (08:18→09:40)
[2019-06-25] MEDS ORDERED: HEPARIN for IV BOLUS 10,000 UNIT/10 ML VIAL. ONE (08:18)
[2019-06-25] MEDS ORDERED: MIDAZOLAM HCL/PF 5 MG/5 ML VIAL. ONE (08:18)
[2019-06-25 08:26] LABS: PROTHROMBIN TIME PATIENT 12.2 SEC (11.7-14.0)
[2019-06-25] MEDS ORDERED: fentaNYL PF VIAL 100 MCG/2 ML VIAL IV ONE (09:00)
[2019-06-25] MEDS ORDERED: IODIXANOL 320 MG/ML 100 ML VIAL. IART ONE (09:00)
[2019-06-25] MEDS ORDERED: MIDAZOLAM HCL/PF 5 MG/5 ML VIAL. IV ONE (09:00)
[2019-06-25] MEDS ORDERED: LIDOCAINE 1% Multi-Dose 20 ML VIAL. INJ ONE (09:00)
[2019-06-25] MEDS ORDERED: hydrALAZINE 20 MG/ML VIAL. ONE (09:48)
[2019-06-25] MEDS ORDERED: HEPARIN for IV BOLUS 10,000 UNIT/10 ML VIAL. IV ONE (10:00)
[2019-06-25] MEDS ORDERED: hydrALAZINE 20 MG/ML VIAL. IVP ONE (10:00)
--- NOTE | 2019-06-25 11:19 | PDOC4 ---
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 Diabetes mellitus with peripheral vascular disease Post-Op Diagnosis: Same as above Procedure Performed: #1 ultrasound-guided access left common femoral artery #2 right anterior tibial artery balloon antiplastic #3 balloon angioplasty of the dorsalis pedis and deep plantar artery #4 placement closure device left common femoral artery access site Surgeon: Félix Bledsoe MD Anesthesia Type: Conscious sedation under surgeon and RN supervision 130 minutes using intrave nous fentanyl and VersedVersed 4.5 mg fentanyl 150 g Blood Loss: Less than 10 mL blood loss Specimans Obtained: None Findings: #1 SFA widely patent and popliteal widely patent #2 right anterior tibial artery open from its origin to the distal calf where it occludes just above the ankle. This reconstitutes as the very distal dorsalis pedis artery. #3 right posterior tibial artery completely occluded #4 right peroneal artery occludes at the ankle #5 after balloon angioplasty the distal anterior tibial artery and dorsalis pedis artery are widely patent, separate angioplasty of the distal dorsalis pedis and the deep plantar artery gives brisk flow out into the mid foot with large collaterals back to the heel Complications: None Operative Note: Patient was escorted to the Sow Manager and placed supine on the table. The groins and right foot were prepped and draped in the usual sterile fashion and a timeout was performed. Intravenous Versed and fentanyl were used to induce sedation under surgeon Miky supervision with placement of appropriate monitoring devices. Attention was directed to the left common femoral artery which was fluoroscopically marked over the femoral head and examined with ultrasound. The vessels found to be patent with good flow and an image of the vessels taken and saved for the medical record. Under real-time ultrasound guidance local anesthetic was injected in the left groin and the left common femoral artery was accessed in a retrograde fashion using a marked puncture needle. This was confirmed under fluoroscopic guidance with a marked puncture wire passed into the iliac artery. This was used to exchange the needle for a micropuncture sh eath which backbled easily. This was used to introduce a Thomas wire into the abdominal aorta under fluoroscopic guidance and exchanged the marked puncture sheath for a 5 [place] sheath which was aspirated and flushed without difficulty. I used this to introduce a flush catheter and this and the Thomas wire reduced. Bifurcation and passed the catheter up and over into the right SFA. Right leg and grams of the SFA popliteal tibial runoff and foot were obtained. I obtained additional angiogram anterior and lateral foot to better define the anatomy for limb salvage. At this point I decided to attempt intervention for salvage. Patient was given intravenous heparin and the catheter was used to introduce a supra core wire into the distal popliteal artery. This was used to exchange the 5 [place] sheath for a 6 [place] 90 cm destination sheath passed up and over the aortic furcation with the distal tip into the right popliteal artery under fluoroscopic guidance. I used 0.014 quick cross catheter and a 0.014 Glidewire advantage to select the anterior tibial artery and then across the distal ROSANNE occlusion and reenter the true lumen of the distal dorsalis pedis and its branches. I confirmed luminal placement with angiography through the catheter tip and then replaced the wire out of the foot. I used a 2.5 mm into possible and for the distal ROSANNE and a 2.0 x 40 angioplasty balloon for the distal DP and deep plantar artery angioplasty. Completion angiography in both AP and lateral views showed much improved flow out to the foot with a large collateral going out that she'll in the area of the wound. The wire was removed. The sheath was removed over a Thomas wire and the Thomas wire was used to introduce an Angio-Seal sheath into good position. A 6 [place] Angio-Seal device was deployed the left femoral access site with excellent hemostasis. The patient was escorted to recovery in stable condition. She was examined and found to have no access site complication. She had a good dorsalis pedis signal at the ankle. She was already on aspirin and Plavix and statins and no further medications were added. She should be able to discharge today, follow up with me for a wound check in about 3-4 weeks. REINIER BLEDSOE MD Jun 25, 2019 11:19
--- NOTE | 2019-06-25 14:32 | NUR ---
Discharge Note: JASKARAN HOOKS Discharge instructions and discharge home medications reviewed with Family Member and a copy given. All questions have been answered and understanding verbalized. Patient are lunch with no difficulties or issues. The following instructions and handouts were given: Moderate sedation, groin site care and Peripheral Vascular disease. Discontinued lines and drains: Right AC, dressing clean dry intact. Patient discharged to home with sister via wheelchair to private vehicle.
== END 2019-06-25 14:20 | disposition home or self-care (01) ==
LOC: CCL 06:59
PROVIDERS: ATTEND Surgery Vascular Surgery
DX: I70.238 Atherosclerosis of native arteries of right leg with ulceration of other part of lower leg (principal); L97.818 Non-pressure chronic ulcer of other part of right lower leg with other specified severity; Z79.899 Other long term (current) drug therapy
CPT/HCPCS: 36415; 37228; 37232; 75710; 76937; 80048; 85027; 85347; 85610; 99152; 99153; C1713; C1725; C1760; C1769; C1892; C1894; J0360; J1644; J2250; J3010; Q9967; G0269; C1771